=== PATIENT | male | born 1965 | race Caucasian/White ===

== ENCOUNTER 2020-06-28 21:05 | Emergency (ER) | payer OTHER ==
[~2020-06-28] VITALS: Ht 182.9 cm; Wt 97.2 kg
[~2020-06-28 21:05] MED LIST: CETI10TA16 PO; METR-34 PO; MULT1TAB97 PO; ONDA4TAB10 PO; SIMV40TA18 PO
[2020-06-28 22:05] VITALS: BP 118/68
== END 2020-06-28 22:45 | disposition left against medical advice (07) ==
LOC: ER 21:05
DX: J02.9 Acute pharyngitis, unspecified (principal); R05 Cough; R11.10 Vomiting, unspecified; Z53.21 Procedure and treatment not carried out due to patient leaving prior to being seen by health care provider